=== PATIENT | female | born 1985 | race Asian ===

== ENCOUNTER 2018-06-30 06:00 | Inpatient (IN) | payer OTHER ==
[2018-06-30] MEDS ORDERED: LIDOCAINE 1% 300 MG/30 ML SDV SC PRN (06:44)
[2018-06-30] MEDS ORDERED: IBUPROFEN 600 MG TAB PO PRN (06:44)
[2018-06-30] MEDS ORDERED: OXYTOCIN/RINGERS LACTATE 1,000 ML IV PRN (06:44)
[2018-06-30] MEDS ORDERED: MISOPROSTOL 200 MCG TAB PR PRN (06:44)
[2018-06-30] MEDS ORDERED: EPSOM SALT 454 GM TP PRN (06:44)
[2018-06-30] MEDS ORDERED: TERBUTALINE SULFATE 1 MG/ML VIAL IV PRN (06:44)
[2018-06-30] MEDS ORDERED: OLIVE OIL 118 ML BTL MISC PRN (06:44)
[2018-06-30 07:15] LABS: PLATELET COUNT 223 10^3/uL (150-400)
[2018-06-30] MEDS ORDERED: LR 500 ML IV PRN (08:59)
[2018-06-30] MEDS ORDERED: OXYTOCIN/RINGERS LACTATE 500 ML IV SCH (09:00)
--- NOTE | 2018-06-30 09:07 | GHP ---
DATE OF ADMISSION: 06/30/2018 ADMITTING DIAGNOSIS: Intrauterine at 40 and 0/7 weeks' gestation for elective induction of labor. HISTORY OF PRESENT ILLNESS: Carolyn, who goes by Zeina, is a 32-year-old, 1, para 0, with a last menstrual period of 09/23/2017, and an EDC of 06/30/2018, which was confirmed by a first trimest er ultrasound. She has had good care at [facility] since registration at 26 weeks . She transferred her care from [facility]. Her is studying at the [employer]. She has had a relatively uncomplicated course. She had an elevated 1 hour GTT, but a 3 hour GTT was normal. She had developed a pruritic rash over her body at 34 weeks, which responded t o topical steroids and antihistamines. Had a negative workup for cholestasis of . The broderick ent has progressed to 40 weeks' gestation and desires induction of labor. On the evening of the the patient's cervix was found to be 1-2 cm and soft. She had a Myers catheter placed for cervical r ipening. On the morning of the , she had minimal contractions. Myers was removed and her cervix was 4, 80, -2 with bulging bag of water. She has no leakage of fluid. No vaginal bleeding. Has had good movement. Since admission the baby has had 1 spontaneous deceleration to the 80s for 3 m inutes with improvement with position change and 1 possible late deceleration at contractions. We coleen e watching baby closely. PAST OBSTETRICAL HISTORY: The patient has no past obstetrical history. This is her first . PAST GYNECOLOGICAL HISTORY: She had menses at age 15, interval every 30 days. Sure and regular last menstrual period of 09/23/2017. This is a planned . PAST MEDICAL HISTORY: She has no significant past medical problems. PAST SURGICAL HISTORY: No past surgical history. ALLERGIES: No known drug allergies. MEDICATIONS: Include vitamins with DHEA, calcium and iron. LABORATORY DATA: She is A positive, antibody negative. RPR nonreactive. Rubella immune. Hepatitis negative. HIV negative. Pap normal. Urinalysis was negative. Urine drug screen was negative. Fi rst trimester screening was negative in [facility]. One hour GTT was 155, but 3 hour was 78, 79, 77 and 7 9. Her most recent hematocrit was 34.9. She is on iron and her group B strep was negative. SOCIAL HISTORY: She is . She lives with her , Joey who is a PhD student at . They are both [place]. She denies tobacco, alcohol, and drug use. FAMILY HISTORY: Father has hypertension. Mother has gallstones. Father also has diabetes and that is all. OBJECTIVE: VITAL SIGNS: Today, she is afebrile. Vital signs are stable. tones 140s reactive , moderate variability with episodes of periodic decelerations with contractions, improved spontaneou sly with position change and with position change has moderate variability. We will call it a catego ry 2. She is nav irregularly. Cervix is 4, 80%, -2. ASSESSMENT AND PLAN: A 32-year-old, 1, para 0, 40 weeks' gestation with an elective inductio n of labor. We are going to watch the baby continuously, have IV fluids running. We are going to [facility] Pitocin augmentation for labor and evaluate status. Fetus does respond well to position ch anges and oxygen. /[id number]/MODL
[2018-06-30] MEDS: LR 1,000 ML IV PRN ×2 (09:17→18:18)
[2018-06-30] MEDS ORDERED: fentaNYL 2MCG/ML/BUP 0.1% RTU 100 ML BAG EP ONE (12:42)
[2018-06-30] MEDS ORDERED: NALOXONE HCL 0.4 MG/ML INJ IVP PRN (13:43)
[2018-06-30] MEDS ORDERED: ONDANSETRON 4 MG/2 ML VIAL IVP PRN (13:43)
[2018-06-30] MEDS ORDERED: PHENYLEPHRINE HCL 100 MCG/ML SYR IVP PRN (13:43)
--- NOTE | 2018-06-30 13:43 | PREANESOB ---
Obstetric Pre-Anesthesia Info - General Info Proposed Procedure: vaginal delivery : 1 Para: 0 FITO: 06/30/18 Gestational Age: 40 week(s) and 0 day(s) - Info Status: Full Term Monitors: External - Labor Status Cervical Dilation per last OB SVE: 4 Pitocin: In Use Magnesium Sulfate in Use: No Indications for Labor Analgesia: Augmentation of Labor Labor Epidural: Proposed Anesthesia Allergies/Adverse Reactions: Allergy/AdvReac Type Severity Reaction Status Date / Time lobster Allergy Uncoded 06/30/18 06:41 Home Medications: Medication Instructions Recorded Calcium Carbonate [Calcium] 06/30/18 Ferrous Sulfate [Iron] 325 mg PO 06/30/18 Vit27&Calcium/Iron/FA 1 each PO DAILY 06/30/18 [ Rx 1 Tablet (RX)] Vit B Complx C/Folic Acid/Zinc 06/30/18 Visit Medications: Generic Name Dose Route Start Last Admin Trade Name Freq PRN Reason Stop Dose Admin Lactated Ringer's 1,000 mls @ 0 mls/hr 06/30/18 06:44 06/30/18 09:17 Lr IV 07/01/18 06:43 1,000 mls PRN PRN Administration SEE PROTOCOL CONDITIONS Protocol Per Protocol Oxytocin/Lactated Ringer's 1,000 mls @ 125 mls/hr 06/30/18 06:44 Pitocin 20 Units/Lr (Premix) IV PRN PRN Post bleeding Lactated Ringer's 500 mls @ 500 mls/hr 06/30/18 08:59 Lr IV 07/01/18 08:59 PRN PRN Maternal Hypotension Oxytocin/Lactated Ringer's 500 mls @ 0 mls/hr 06/30/18 09:00 06/30/18 09:18 Pitocin 30 Units/Lr (Premix) IV 12/27/18 08:59 500 mls CONT JANIS Administration Protocol Per Protocol Ibuprofen 600 mg 06/30/18 06:44 Motrin PO ONCE PRN post , pain Lidocaine HCl 300 mg 06/30/18 06:44 Lidocaine Hcl 1% SC 12/27/18 06:43 ONCE PRN episiotomy Magnesium Sulfate 454 gm 06/30/18 06:44 Epsom Salt TP 12/27/18 06:43 Q1H PRN perineal discomfort Misoprostol 800 - 1,000 mcg 06/30/18 06:44 Cytotec ID ONCE PRN Vaginal Atony/Bleeding [place] Oil 118 ml 06/30/18 06:44 Sweet Oil MISC 12/27/18 06:43 ONCE PRN perineal massage Terbutaline Sulfate 0.25 mg 06/30/18 06:44 Brethine IV 12/27/18 06:43 ONCE PRN Tachysystole Discontinued Medications Generic Name Dose Route Start Last Admin Trade Name Camryn PRN Reason Stop Dose Admin Fentanyl/Bupivacaine HCl Confirm 06/30/18 12:42 Fentanyl/Bupivacaine/Ns 2 Mcg/Ml 0.1% (Premix Administered 06/30/18 12:43 Dose 100 ml EP .STK-MED ONE - Anesthesia History Response to Local Anesthetics: Normal Anesthesia & Operative History: No Prior Problems Family Anesthesia History: Negative - Social History Substance Use/Abuse: Denies - Vital Signs Latest Vital Signs (Nursing): See nursing flowsheet. Height/Weight (Nursing): Height 149.86 cm Weight 68 kg - Focused Exam Neck exam: FROM Mallampati Score: Class 2 Mouth exam: normal dental/mouth exam Cardiovascular: regular rate and rhythym Labs: 06/30/18 06:45 Patient ABO/Rh A POSITIVE 06/30/18 06:45 - Plan Consent Signed and on Chart: Yes
[2018-06-30] MEDS ORDERED: fentaNYL 2MCG/ML/BUP 0.1% RTU 100 ML EP SCH (14:00)
[2018-06-30] MEDS ORDERED: LR 500 ML IV SCH (14:00)
--- NOTE | 2018-06-30 14:51 | OBPROG ---
Labor Progress Note Assessment/Plan: Assessment: 32 y/o @ 40 weeks for elective IOL Plan: We had an extensive discussion with the aid of the [employer] puttier to address the spontaneous decelerations. I offered the patient to proceed directly with surgical delivery because of fear that decelerations may necessitate emergent delivery later today vs placement of epidural for pain management followed by AROM, placement of IUPC and FSE to closely monitor progress and continue with IOL. With time discussing options with all of the family members through the career and transition teacher, we monitored status and it dramatically improved with Category I tracing despite contractions for approximately 1 hour. Because of this reassuring contraction stress test, I recommend we continue to try for a vaginal delivery. She agreed. She is now comfortable and fetus did well throughout the interventions. Will continue to dose to achieve adequate labor and observe status closely. 06/30/18 14:44 Subjective/Intrapartum Course: 06/30/18 14:42 Pt is now comfortable with her epidural. I responded to another prolonged deceleration of the tracing to the 80's for approximately 4 minutes. FHT responded to position change and O2. Currently, FHT's are stable and Category I. Objective: 06/30/18 06:45 Patient ABO/Rh A POSITIVE 06/30/18 06:45 - SVE Dilation (cm): 5 Effacement (%): 80 Station: -1 Membranes: AROM Amniotic Fluid Color: Clear - Contraction Pattern Assessment Current Contraction Pattern: Irregular (Q 3-4) - FHR Assessment Marie FHR (bpm): 130 FHR Pattern Variability: Moderate FHR Category: 1 - Procedures Non-surgical Procedures: Amniotomy, FSE, IUPC - AP Antepartum Course: 06/30/18 14:44 Transfer of care from [place] 26 weeks Elective IOL @ 40 weeks Oxytocin Orders Assessment - Pre-Induction/Augmentation Assessment Gestational Age: 40 week(s) and 0 day(s) ICD10 Worksheet Patient Problems: Problems Problem Status Onset Encounter for elective induction of labor Acute - ICD10 Problem Qualifiers (1) Encounter for elective induction of labor
--- NOTE | 2018-06-30 17:05 | OBPROG ---
Labor Progress Note Assessment/Plan: Assessment: 32 y/o @ 40 weeks for elective IOL Plan: Baby has been reassuring and Category I since her epidural. She is resting comfortably and we are increasing contractions to achieve adequate labor. Continue to monitor closely and will check in 2 hours. 06/30/18 14:44 06/30/18 17:03 Subjective/Intrapartum Course: 06/30/18 14:42 Pt is now comfortable with her epidural. I responded to another prolonged deceleration of the tracing to the 80's for approximately 4 minutes. FHT responded to position change and O2. Currently, FHT's are stable and Category I. 06/30/18 17:02 Pt remains comfortable with her epidural. She is very hungry and would like to deliver her baby soon. Objective: 06/30/18 06:45 Patient ABO/Rh A POSITIVE 06/30/18 06:45 - SVE Dilation (cm): 6 Effacement (%): 75 Station: -1 Membranes: AROM Amniotic Fluid Color: Clear - Contraction Pattern Assessment Current Contraction Pattern: Irregular (Q 3-4) - Procedures Non-surgical Procedures: Amniotomy, FSE, IUPC - AP Antepartum Course: 06/30/18 14:44 Transfer of care from [place] 26 weeks Elective IOL @ 40 weeks Oxytocin Orders Assessment - Pre-Induction/Augmentation Assessment Gestational Age: 40 week(s) and 0 day(s) ICD10 Worksheet Patient Problems: Problems Problem Status Onset Encounter for elective induction of labor Acute - ICD10 Problem Qualifiers (1) Encounter for elective induction of labor
[2018-06-30] MEDS ORDERED: LIDOCAINE 1% 300 MG/30 ML SDV ONE (17:44)
[2018-06-30] MEDS ORDERED: AMMONIA AROMATIC 1 EACH AMP IH ONE (17:44)
[2018-06-30] MEDS ORDERED: TERBUTALINE SULFATE 1 MG/ML VIAL ONE (17:44)
[2018-06-30] MEDS ORDERED: OLIVE OIL 118 ML BTL ONE (17:44)
[2018-06-30] MEDS ORDERED: OXYTOCIN 10 UNIT/ML VIAL ONE (17:45)
[2018-06-30] MEDS ORDERED: MISOPROSTOL 200 MCG TAB ONE (17:45)
--- NOTE | 2018-06-30 18:52 | OBPROG ---
Labor Progress Note Assessment/Plan: Assessment: 32 y/o @ 40 weeks for elective IOL Plan: Good cervical progression now adequate contractions. heart tones have been steady and is doing well. I will check in 1 hour. 06/30/18 14:44 06/30/18 17:03 06/30/18 18:46 Subjective/Intrapartum Course: 06/30/18 14:42 Pt is now comfortable with her epidural. I responded to another prolonged deceleration of the tracing to the 80's for approximately 4 minutes. FHT responded to position change and O2. Currently, FHT's are stable and Category I. 06/30/18 17:02 Pt remains comfortable with her epidural. She is very hungry and would like to deliver her baby soon. 06/30/18 18:45 Pt is beginning to feel more pelvic pressure. Objective: 06/30/18 06:45 Patient ABO/Rh A POSITIVE 06/30/18 06:45 - SVE Dilation (cm): 8 Effacement (%): 90 Station: +1 Membranes: AROM Amniotic Fluid Color: Clear - Contraction Pattern Assessment Current Contraction Pattern: Regular (Q 2-3 ), Irregular (Q 3-4) - FHR Assessment Marie FHR (bpm): 140 FHR Pattern Variability: Moderate FHR Category: 1 - Procedures Non-surgical Procedures: Amniotomy, FSE, IUPC - AP Antepartum Course: 06/30/18 14:44 Transfer of care from [place] 26 weeks Elective IOL @ 40 weeks Oxytocin Orders Assessment - Pre-Induction/Augmentation Assessment Gestational Age: 40 week(s) and 0 day(s) ICD10 Worksheet Patient Problems: Problems Problem Status Onset Encounter for elective induction of labor Acute - ICD10 Problem Qualifiers (1) Encounter for elective induction of labor
[2018-06-30] MEDS ORDERED: SIMETHICONE 80 MG TAB CHEW PO PRN (20:53)
[2018-06-30] MEDS ORDERED: HYDROCORTISONE 0.5% CREAM TP PRN (20:53)
[2018-06-30] MEDS ORDERED: oxyCODONE IR 5 MG TAB PO PRN (20:53)
--- NOTE | 2018-06-30 20:57 | OBDEL ---
Info Type: Vaginal Presentation at Delivery: Vertex L&D Analgesia/Anesthesia Type: Epidural, Local (1% lidocaine) GBS+: No Intrapartum Medications: Generic Name Dose Route Start Last Admin Trade Name Camryn PRN Reason Stop Dose Admin Lactated Ringer's 1,000 mls @ 0 mls/hr 06/30/18 06:44 06/30/18 18:18 Lr IV 07/01/18 06:43 1,000 mls PRN PRN Administration SEE PROTOCOL CONDITIONS Protocol Per Protocol Oxytocin/Lactated Ringer's 500 mls @ 0 mls/hr 06/30/18 09:00 06/30/18 09:18 Pitocin 30 Units/Lr (Premix) IV 12/27/18 08:59 500 mls CONT JANIS Administration Protocol Per Protocol - Hospital Course Intrapartum: 06/30/18 14:42 Pt is now comfortable with her epidural. I responded to another prolonged deceleration of the tracing to the 80's for approximately 4 minutes. FHT responded to position change and O2. Currently, FHT's are stable and Category I. 06/30/18 17:02 Pt remains comfortable with her epidural. She is very hungry and would like to deliver her baby soon. 06/30/18 18:45 Pt is beginning to feel more pelvic pressure. Indications for Delivery: Elective Vaginal Delivery - Delivery Provider Delivery Physician/CNM: Teresa Gonzales - Labor and Delivery Onset of Contractions Date: 06/30/18 Onset of Contractions Time: 12:00 Onset of Contractions Type: Induced Rupture of Membranes Date: 06/30/18 Rupture of Membranes Time: 14:12 Rupture of Membranes Type: Artificial Amniotic Fluid Color: Clear Dilation Complete Date: 06/30/18 Dilation Complete Time: 19:48 Placenta Delivery Date: 06/30/18 Placenta Delivery Time: 20:23 Total Hours of Labor: 8 Non-surgical Procedures: Amniotomy, FSE, IUPC Laceration: 2nd Degree, Other (Specify) (L vaginal sulcus) Repair: 2-0, Vicryl Vaginal Sponge Count Correct: Yes Vaginal Needle Count Correct: Yes Vaginal Sweep Performed: Yes EBL: 350 Delivery Events: Nuchal Cord (tight x 1) - Medications Labor Augmentation/Induction Methods Used: Pitocin, Myers Bulb Labor Augmentation/Induction Indication: Elective Data FITO: 11/09/18 Gestational Age: 40 week(s) and 0 day(s) Marie Delivery Date: 06/30/18 Delivery Time: 20:19 Sex of : Female Score (1 Min): 8 Score (5 Min): 9 ICD10 Worksheet Patient Problems: Problems Problem Status Onset Encounter for elective induction of labor Acute (spontaneous vaginal delivery) Acute - ICD10 Problem Qualifiers (1) Encounter for elective induction of labor (2) (spontaneous vaginal delivery)
[2018-07-01] MEDS: IBUPROFEN 600 MG TAB PO SCH ×4 (03:59→22:35)
[2018-07-01] MEDS: ACETAMINOPHEN 325 MG TAB PO SCH ×4 (06:01→22:40)
--- NOTE | 2018-07-01 11:31 | POSTANESTH ---
Post Anesthetic Evaluation Cardiovascular Status: Normal, Stable Respiratory Status: Normal, Stable Level of Consciousness/Mental Status: Can Participate in Eval Pain Control: Adequate, Prn Tx Ordered Nausea/Vomiting Control: Adequate, Prn Tx Ordered Complications Possibly Related to Anesthesia: None Noted
--- NOTE | 2018-07-01 11:33 | OBPP ---
Progress Note Assessment/Plan: Assessment: 1) s/p PPD # 1 - pt is stable 2) Anemia - pt is asymptomatic Plan: Continue routine pp care Encourage ambulation Will star iron, cont colace support prn Plan for d/c home in am 07/0207/01/18 11:32 Subjective/ Course: 07/01/18 11:30 Pt seen and examined. She is c/o L nipple pain, just tried Lanolin cream. Some mild cramping and soreness down below. Pt is OOB, dipesh regular diet, voiding without difficulty and passing flatus. No BM. Mod lochia. Still working on BF, some difficulty with latch. Objective: 07/01/18 05:54 Patient ABO/Rh A POSITIVE 06/30/18 06:45 Temp Pulse Resp BP Pulse Ox 36.4 C 74 16 99/59 L 94 07/01/18 01:15 07/01/18 01:15 07/01/18 01:15 07/01/18 01:15 07/01/18 01:15 Uterine Position/Fundal Height: Umbilicus -2 Uterine Tone: Firm Physical Exam - Physical Exam General Appearance: WD/WN, alert, no apparent distress Respiratory: lungs clear, normal breath sounds Cardiac/Chest: regular rate, rhythm Abdomen: normal bowel sounds, non-tender, soft, flatus (+) Extremities: non-tender, normal inspection Skin: normal color, warm/dry Neuro/Psych: alert, normal mood/affect, oriented x 3
[2018-07-01] MEDS: FERROUS SULFATE 140 MG TAB.ER PO SCH (16:36)
[2018-07-01] MEDS: DOCUSATE SODIUM 100 MG CAP PO PRN (22:57)
[2018-07-02] MEDS: IBUPROFEN 600 MG TAB PO SCH ×2 (04:30→10:00)
[2018-07-02] MEDS: ACETAMINOPHEN 325 MG TAB PO SCH ×3 (04:40→10:01)
[2018-07-02 07:30] VITALS: BP 117/74
[2018-07-02] MEDS: FERROUS SULFATE 140 MG TAB.ER PO SCH (10:03)
[2018-07-02] MEDS: DOCUSATE SODIUM 100 MG CAP PO PRN (10:04)
--- NOTE | 2018-07-02 10:56 | OBGCSDC ---
General Delivery Information - General Info : 1 Para: 1 Abortions: 0 Type: Vaginal L&D Analgesia/Anesthesia Type: Epidural Admission Date: 06/30/18 Labs: Patient ABO/Rh A POSITIVE 06/30/18 06:45 Hct 29.8 % (38.0-47.0) L 07/01/18 05:54 - Hospital Course Antepartum: 06/30/18 14:44 Transfer of care from [place] 26 weeks Elective IOL @ 40 weeks Intrapartum: 06/30/18 14:42 Pt is now comfortable with her epidural. I responded to another prolonged deceleration of the tracing to the 80's for approximately 4 minutes. FHT responded to position change and O2. Currently, FHT's are stable and Category I. 06/30/18 17:02 Pt remains comfortable with her epidural. She is very hungry and would like to deliver her baby soon. 06/30/18 18:45 Pt is beginning to feel more pelvic pressure. : 07/01/18 11:30 Pt seen and examined. She is c/o L nipple pain, just tried Lanolin cream. Some mild cramping and soreness down below. Pt is OOB, dipesh regular diet, voiding without difficulty and passing flatus. No BM. Mod lochia. Still working on BF, some difficulty with latch. 07/02/18 10:50 Pt is doing well today. Her perineal pain is minimal and controlled with Ibuprofen. She is nursing well and baby is doing well. She has some blistering on her left nipple and is wearing a shield. She is ambulating, voiding without difficulty and has min lochia. They are ready to d/c home today. Vaginal - Delivery Provider Delivery Physician/CNM: Teresa Gonzales - Diagnosis Labor: Induced Rupture of Membranes Type: Artificial Amniotic Fluid Color: Clear Laceration: 2nd Degree, Other (Specify) (L vaginal sulcus) Repair: 2-0, Vicryl Delivery Events: Nuchal Cord (tight x 1) - Procedures Non-surgical Procedures: Amniotomy, FSE, IUPC - Delivery Non-surgical Procedures: Amniotomy, FSE, IUPC EBL: 350 Data FITO: 06/30/18 Gestational Age: 40 week(s) and 2 day(s) Marie Delivery Date: 06/30/18 Delivery Time: 20:19 Sex of Infant: Female Weight (gm): 2835 kg Score (1 Min): 8 Score (5 Min): 9 Discharge Information - Discharge Information Prescriptions: Ferrous Sulfate [Slow Fe 140 MG (*)] 140 mg PO DAILY #30 tab.er Ibuprofen [Motrin (*)] 600 mg PO Q6H #30 tab Condition: Good Instruction/Follow Up: Four Weeks, Six Weeks
--- NOTE | 2018-07-02 10:56 | OBPP ---
Progress Note Assessment/Plan: Assessment: 32 y/o PPD #2 s/p elective IOL Plan: D/c home today with Rx Ibuprofen, iron and APNO cream. Follow-up @ [facility] 4 and 6 weeks. 06/30/18 14:44 06/30/18 17:03 06/30/18 18:46 07/02/18 10:52 Subjective/ Course: 07/01/18 11:30 Pt seen and examined. She is c/o L nipple pain, just tried Lanolin cream. Some mild cramping and soreness down below. Pt is OOB, dipesh regular diet, voiding without difficulty and passing flatus. No BM. Mod lochia. Still working on BF, some difficulty with latch. 07/02/18 10:50 Pt is doing well today. Her perineal pain is minimal and controlled with Ibuprofen. She is nursing well and baby is doing well. She has some blistering on her left nipple and is wearing a shield. She is ambulating, voiding without difficulty and has min lochia. They are ready to d/c home today. Objective: 07/01/18 05:54 Patient ABO/Rh A POSITIVE 06/30/18 06:45 Temp Pulse Resp BP Pulse Ox 36.6 C 87 16 117/74 97 07/02/18 07:28 07/02/18 07:28 07/02/18 07:28 07/02/18 07:28 07/02/18 07:28 Uterine Position/Fundal Height: Umbilicus -3 Uterine Tone: Firm Physical Exam - Physical Exam General Appearance: alert, no apparent distress Neck: non-tender, full range of motion, supple Respiratory: chest non-tender, lungs clear, normal breath sounds Cardiac/Chest: regular rate, rhythm Abdomen: normal bowel sounds Extremities: swelling (tr), Radha's sign (neg)
== END 2018-07-02 14:26 | disposition home or self-care (01) | DRG 807 ==
LOC: FLD 06:18 → FOB 23:10
PROVIDERS: ADMIT Obstetrics & Gynecology; ATTEND Obstetrics & Gynecology
PROC: 10E0XZZ Delivery of Products of Conception, External Approach (ICD-10-PCS; principal; 2018-06-30)
PROC: 3E033VJ Introduction of Other Hormone into Peripheral Vein, Percutaneous Approach (ICD-10-PCS; principal; 2018-06-30)
PROC: 10907ZC Drainage of Amniotic Fluid, Therapeutic from Products of Conception, Via Natural or Artificial Opening (ICD-10-PCS; principal; 2018-06-30)
PROC: 0KQM0ZZ Repair Perineum Muscle, Open Approach (ICD-10-PCS; principal; 2018-06-30)
DX: O70.1 Second degree perineal laceration during delivery (principal); O76 Abnormality in fetal heart rate and rhythm complicating labor and delivery; O69.1XX0 Labor and delivery complicated by cord around neck, with compression, not applicable or unspecified; O90.81 Anemia of the puerperium; Z3A.40 40 weeks gestation of pregnancy; Z37.0 Single live birth
CPT/HCPCS: J2590; J3105